=== PATIENT | female | born 1980 | race Caucasian/White ===

== ENCOUNTER 2023-07-14 08:55 | Emergency (ER) | payer MEDICAID ==
[2023-07-14 09:28] VITALS: O2SAT 99
--- NOTE | 2023-07-14 09:33 | ED Physician Documentation ---
History of Present Illness - Stated complaint Stated Complaint: CHEST PX,REACTION,SOA - Chief complaint Chief Complaint: Cardiac - Additonal information Additional information: Patient 42-year-old female presenting to the emergency department with chest pain. Reports left-sided chest pain that has been constant in nature for 1-1/2 days. States has had similar brief episodes of chest pain in the past but never 1 that has been persistent. Does report that she recently received COVID vaccination a few days ago. Denies any history of cardiac issues, chronic medical concerns or recent travel or hospitalizations. Review of Systems Constitutional: denies: Fever Eyes: denies: Loss of vision Ears: denies: Loss of hearing Nose: denies: Rhinorrhea / runny nose Throat: denies: Dental pain / toothache Cardiac: reports: Chest pain / pressure Respiratory: denies: Dyspnea GI: denies: Abdominal Pain PD PAST MEDICAL HISTORY - Past Medical History Past Medical History: No - Past Surgical History Past Surgical History: Yes - Present Medications Home Medications: Ambulatory Orders Medication Instructions Recorded Confirmed No Known Home Medications 07/14/23 07/14/23 - Allergies Allergies/Adverse Reactions: Allergies Allergy/AdvReac Type Severity Reaction Status Date / Time No Known Drug Allergies Allergy Verified 07/14/23 09:15 - Social History Does the pt smoke?: No Smoking Status: Never smoker PD ED PE NORMAL - General General: Alert and oriented X 3 - HEENT HEENT: Atraumatic - Neck Neck: Supple, no meningeal sign - Cardiac Cardiac: RRR - Respiratory Respiratory: No respiratory distress - Abdomen Abdomen: Normal bowel sounds - Female Female : Deferred - Rectal Rectal: Deferred Results - Vitals Vitals: Vital Signs - 24 hr 07/14/23 09:12 Temperature 36.0 C L Heart Rate 59 L Respiratory 16 Rate Blood Pressure 121/72 O2 Saturation 99 Oxygen O2 Source Room air - EKG (time done) 0917 EKG releavant findings:: EKG personally interpreted by author of this note. Relevant findings are: Sinus rhythm with rate 62 bpm. Normal axis. Normal MT, QRS, QTc intervals. No ST segment elevations or T wave inversions. - Labs Labs: Laboratory Tests 07/14/23 07/14/23 07/14/23 09:41 09:41 09:41 WBC 4.7 L RBC 4.65 Hgb 13.9 Hct 42.2 MCV 90.8 MCH 29.9 MCHC 32.9 RDW 12.0 Plt Count 285 MPV 9.4 Neut # (Auto) 2.6 Lymph # (Auto) 1.6 [facility] # (Auto) 0.5 Eos # (Auto) 0.1 Baso # (Auto) 0.0 Absolute Nucleated RBC 0.00 Nucleated RBC % 0.0 D-Dimer 214.6 Sodium 139 Potassium 4.5 Chloride 104 Carbon Dioxide 27 Anion Gap 8.0 BUN 10 Creatinine 0.7 Estimated GFR (MDRD) 93 Glucose 107 H Calcium 9.5 Magnesium 1.9 Total Bilirubin 0.3 AST 16 ALT 13 Alkaline Phosphatase 88 Troponin I High Sens Total Protein 7.1 Albumin 4.3 Globulin 2.8 Albumin/Globulin Ratio 1.5 Lipase 17 07/14/23 09:41 WBC RBC Hgb Hct MCV MCH MCHC RDW Plt Count MPV Neut # (Auto) Lymph # (Auto) [facility] # (Auto) Eos # (Auto) Baso # (Auto) Absolute Nucleated RBC Nucleated RBC % D-Dimer Sodium Potassium Chloride Carbon Dioxide Anion Gap BUN Creatinine Estimated GFR (MDRD) Glucose Calcium Magnesium Total Bilirubin AST ALT Alkaline Phosphatase Troponin I High Sens 2.3 Total Protein Albumin Globulin Albumin/Globulin Ratio Lipase PD Medical Decision Making - ED course Complexity details: re-evaluated patient, considered differential, d/w patient ED course: Patient 42-year-old female presenting to the emergency department with left- sided chest pain. Pain is constant in nature but not clearly reproducible on exam. No pleuritic component appreciated on exam. Patient has minimal if any risk factors for coronary artery disease. EKG nonacute. High-sensitivity troponin and D-dimer negative.Chest x-ray negative per my interpretation. Exact etiology for patient's left-sided chest pain is unsure. It seems unlikely that this is a vaccine reaction. Will initiate course of nonsteroidal anti- inflammatory medication for symptomatic management and encourage prompt follow- up with primary care for reevaluation or prompt return to the emergency department as needed. Departure - Departure Disposition: 01 Home, Self Care Clinical Impression: Heart palpitations Chest pain Qualifiers: Chest pain type: unspecified Qualified Code(s): R07.9 - Chest pain, unspecified Instructions: ED Chest Pain Atypical Unkn Cause Comments: Thank you for allowing us to care for you today at [facility]. Today in the emergency department you were evaluated for any possible dangerous or life-threatening medical condition. All of the testing performed in the emergency department today including your EKG, blood work and chest x-ray were all very reassuring. As we discussed there are many reasons why individuals can have the sensation of heart palpitations are brief episodes of chest pain. I do recommend that you follow-up with your primary care doctor soon as possible concerning your ER visit as they may wish to do further testing such as longer- term monitoring of your heart rate and rhythm. Additionally I recommend avoiding stimulants such as caffeine, excessively spicy foods, alcohol As these can contribute to worsening sensation of heart palpitations. If it anytime you have new or worsening symptoms please not hesitate to return. Forms: PCP List
[2023-07-14 09:46] LABS: BASOPHILS % (AUTO) 0.6 %; EOSINOPHILS # (AUTO) 0.1 10^3/uL (0.0-0.7); EOSINOPHILS % (AUTO) 1.3 %; HCT - HEMATOCRIT 42.2 % (37.0-47.0); HGB - HEMOGLOBIN 13.9 g/dL (12.0-16.0); LYMPHOCYTES # (AUTO) 1.6 10^3/uL (1.5-3.5); LYMPHOCYTES % (AUTO) 32.7 %; MEAN CORPUSCULAR HEMOGLOBIN 29.9 pg (27.0-31.0); MEAN CORPUSCULAR HGB CONC 32.9 g/dL (32.0-36.0); MEAN CORPUSCULAR VOLUME 90.8 fL (81.0-99.0); MEAN PLATELET VOLUME 9.4 fL (7.9-10.8); MONOCYTES # (AUTO) 0.5 10^3/uL (0.0-1.0); MONOCYTES % (AUTO) 10.5 %; NEUTROPHILS # (AUTO) 2.6 10^3/uL (1.5-6.6); NEUTROPHILS % (AUTO) 54.9 %; PLT - PLATELET COUNT 285 10^3/uL (130-450); RED BLOOD COUNT 4.65 10^6/uL (4.20-5.40); WHITE BLOOD COUNT 4.7 x10^3/uL (4.8-10.8)
[2023-07-14 10:01] LABS: ALBUMIN 4.3 g/dL (3.2-5.5); ALBUMIN/GLOBULIN RATIO 1.5 (1.0-2.2); BILIRUBIN,TOTAL 0.3 mg/dL (0.2-1.0); CALCIUM 9.5 mg/dL (8.5-10.3); CREATININE 0.7 mg/dL (0.6-1.3); MAGNESIUM 1.9 mg/dL (1.7-2.3); POTASSIUM 4.5 mmol/L (3.5-4.5); TOTAL PROTEIN 7.1 g/dL (6.4-8.9)
--- NOTE | 2023-07-14 12:11 | XRAY Report ---
PROCEDURE: Chest 2V INDICATIONS: Left chest pain TECHNIQUE: 2 views of the chest were acquired. COMPARISON: None. FINDINGS: Surgical changes and devices: None. Lungs and pleura: No pleural effusions or pneumothorax. Lungs are clear. Mediastinum: Mediastinal contours appear normal. Heart size is normal. Bones and chest wall: No suspicious bony lesions. Overlying soft tissues appear unremarkable. IMPRESSION: No acute cardiopulmonary process. Reviewed by: Demario Solares MD on 07/14/2023 11:09 AM [facility] Approved by: Demario Solares MD on 07/14/2023 11:09 AM [facility] Station ID: [id number]
[2023-07-14 12:33] VITALS: BP 120/78
== END 2023-07-14 12:29 | disposition home or self-care (01) ==
LOC: ED 08:55
DX: R07.9 Chest pain, unspecified (principal); R00.2 Palpitations
CPT/HCPCS: 36415; 80053; 83690; 83735; 84484; 85025; 85379; 93005; 99283